=== PATIENT | female | born 1975 | race Caucasian/White ===

== ENCOUNTER → 2021-02-10 | Outpatient (CLI) | payer OTHER ==
[2016-04-20 11:00] VITALS: BP 109/62
[~2021-02-10] MED LIST: ALPR0.25 PO; CETI10TA74 PO; CYAN250T3 PO; ELET20TA PO; IBUP400T18 PO; IOHEXOL 240 MG/ML 50ML VIAL. ONE; IOHEXOL 300 MG/ML 75 ML VIAL. IV ONE; METO25TA4 PO; Mouthwash PO; SUCR1ORA14 PO; SUCR1TAB35 PO; SUMA50TA3 PO; ZOLP10TA PO
--- NOTE | 2021-02-12 12:36 | RAD ---
CT scan of the abdomen with contrast 02/10/2021 CLINICAL HISTORY: Periumbilical pain. History of umbilical hernia repair 12 years ago. TECHNIQUE: After the oral and intravenous ministration contrast, contiguous, 5 mm axial sections were obtained through the abdomen. 75 cc of Omnipaque 300 were administered intravenously during this exa mination. One or more of the following individualized dose reduction techniques were utilized for this study: 1. Automated exposure control. 2. Adjustment of the mA and/or kV according to patient size. 3. Use of iterative reconstruction technique. FINDINGS: Images through the lung bases demonstrate minimal dependent subsegmental atelectasis bilate rally. The liver, spleen, pancreas, adrenal glands and kidneys are within normal limits. Surgical clips are seen within the gallbladder fossa consistent with a cholecystectomy. Atherosclerot ic calcification abdominal aorta is seen. The abdominal aorta tapers normally. Scattered diverticula are seen involving the visualized colon. No inflammatory changes are seen within the adjacent fat. A moderate stool seen throughout the colon. There is no evidence of bowel obstruction. The appendix is not included on this study. The patient is post umbilical hernia repair no recurrent hernia is seen. The osseous structures are grossly intact. IMPRESSION: Post umbilical hernia repair. No recurrent hernia is seen. No acute abnormality is noted. Electronically signed by: Aftab Ordonez MD (02/12/2021 12:33 PM) [id number]
== END ==
LOC: CT 07:55
PROVIDERS: ATTEND Surgery
DX: K42.9 Umbilical hernia without obstruction or gangrene (principal)
CPT/HCPCS: 74160; Q9967